=== PATIENT | male | born 1975 | race Caucasian/White ===

== ENCOUNTER 2022-06-18 15:26 | Inpatient (IN) | payer BC, MEDICAID, SELFPAY ==
[2022-06-18 15:26] VITALS: BMI 26.4
[2022-06-18 15:28] VITALS: BP 132/78; PULSE 78; RESP 18; TEMP 37.5; O2SAT 98
[2022-06-18] MEDS: ibuprofen 800 mg tablet PO (16:28)
[2022-06-18] MEDS: calcium carbonate 500 mg Chew Tablet 1000 MG PO ×2 (16:28→20:24)
[2022-06-18 19:35] VITALS: BP 123/77; PULSE 84; RESP 16; TEMP 36.7; O2SAT 98
--- NOTE | 2022-06-18 20:25 | PC.NURSE ---
PRN tums were given as ordered per pt request of complaint of heartburn.
[2022-06-18] MEDS: hyDROXYzine 25 mg Capsule 50 MG PO (21:20)
--- NOTE | 2022-06-18 21:25 | PC.NURSE ---
PRN vistaril for anxiety given as ordered per pt request.
[2022-06-18] MEDS: ondansetron 4 MG Tablet PO (22:28)
--- NOTE | 2022-06-18 22:35 | PC.NURSE ---
PRN zofran given as ordered for pt complaint of upset stomach and heartburn.
[2022-06-18] MEDS: alum-mag-hydroxide-sime 30 mL UDC PO (23:07)
--- NOTE | 2022-06-18 23:15 | PC.NURSE ---
PRN Maalox given as ordered for pt complaint of continuing heartburn.
[2022-06-19] MEDS: calcium carbonate 500 mg Chew Tablet 1000 MG PO ×3 (01:22→21:52)
--- NOTE | 2022-06-19 01:25 | PC.NURSE ---
PRN tums given as ordered for continuing heartburn per pt request.
[2022-06-19] MEDS: magnesium hydroxide 30 mL UDC PO (01:55)
--- NOTE | 2022-06-19 01:57 | PC.NURSE ---
PRN milk of mag was given as ordered per pt complaint of constipation.
[2022-06-19 06:00] VITALS: RESP 16
[2022-06-19] MEDS: quetiapine 100 mg Tablet PO (09:15)
[2022-06-19] MEDS: sertraline 50 mg Tablet PO (09:15)
[2022-06-19] MEDS: ibuprofen 800 mg tablet PO ×2 (09:15→21:52)
[2022-06-19] MEDS: ALPRAZolam 0.5 mg Tablet 1 MG PO (09:19)
--- NOTE | 2022-06-19 11:30 | W.PM.NPUH&PS ---
Providers/Chief Complaint Admitting Physician: Francisco Travis MD Chief Complaint: SI HPI NPU History of Present Illness Manuel Porter is a 47 year old male who presented to the outside hospital via police with reports of an overdose that they report as a suicidal gesture but he reports as a bizarre response to taking Ambien at the wrong time. He was taken to the outside hospital and affidavits were written and he was transferred to [facility] and admitted to the neuropsychiatric unit for definitive treatment of those issues. He presents today reporting that he is on Seroquel and Zoloft. He also is noted for having Ambien and Xanax. He told some convoluted story about falling playing basketball somehow leading to this event which was really unclear. He reports that he has been in a psychiatric hospital in the past. He reports this was may be a couple months ago because he had gone to have [facility] as a treatment and he was also on Effexor and he had some kind of elevated blood pressure difficulty which led to an inpatient hospitalization his Effexor being discontinued which was something he is taken for a long period of time and being switched over to Zoloft and Seroquel. He reports that he has no issues with smoking, alcohol or marijuana or any other drugs. He reports he is never been to rehab never had a DUI or any other drug related charges. He reports that he had difficulties with depression starting in his 20s and that he has been on Effexor XR much of his life. He reports that he went off of it over a month ago during this episode and the [facility] clinic that led to his only inpatient hospitalization. He reports he does have some anxiety that is occasionally challenging but not usually. He denies any other symptoms related to psychosis, OCD, PTSD, bipolar disorder any other significant condition. We discussed the risk benefits and alternatives of making some changes to his medications and he understood but was resistant reporting that he is currently doing fine on the medication. According to him he takes Ambien every night but he takes it right when he is hitting his pillow and that yesterday he took it before he laid down and that he has a history of odd reactions when he takes it other than when his head hits the pillow. We discussed that reporting uncontrolled behaviors when taking a medication he uses regularly is problematic and concerning for his safety.. Psychiatric history: As above. Substance abuse history: As above. Family history: He endorses mental health issues on father side but none on mother's side and no addiction issues or suicide attempts or completions on either side of the family. Developmental history: He denies any issues at and reports he learned to walk and talk and met his developmental milestones on time. When he went off to school there was no need for speech therapy, learning support, emotional support or special education classes. Psychosocial history: His parents were together when he was born and remained together. He has a younger sister who is a product of that same union and neither of his parents have any other children. He reports that his childhood was good and he denies any emotional physical or sexual abuse. He graduated from high school and reports that he has had no real additional training specifically. He endorses being a heterosexual and his longest relationship was about 4 years. He has never been , has never had children, he has never been in the , and reports being Adventist. He reports his longest job was 15 years at [employer]. And he is currently self-employed. 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 Legal history: Denied. Medical history: He denies any significant medical issues other than this recent pain syndrome that supposedly had some connection to him going to the hospital. Meds NPU Home Medications Medication Instructions Recorded Confirmed Last Taken Type alprazolam 1 mg tablet 1 mg PO BID PRN Anxiety 06/18/22 06/18/22 Unknown History quetiapine 100 mg tablet 100 mg PO DAILY 06/18/22 06/18/22 Unknown History sertraline 50 mg tablet 50 mg PO DAILY 06/18/22 06/18/22 Unknown History zolpidem 10 mg tablet 10 mg PO BEDTIME 06/18/22 06/18/22 Unknown History Allergies Allergy/AdvReac Type Severity Reaction Status Date / Time venlafaxine [From Effexor] AdvReac ADR-Hyperte Verified 06/18/22 15:52 nsion Mental Status Exam MSE Comments: This is a tall slender white male in hospital scrubs with adequate grooming and eye contact. No abnormal movements. Cooperative with exam in mild distress. Speech was slightly decreased rate and volume. Mood described as all right, affect slightly subdued. Thought process organized. Thought content: Patient denied suicidal or homicidal ideation, there were no delusions reported or noted, he denied any auditory or visual hallucinations. Attention and concentration were intact and memory appeared somewhat unreliable but none were formally tested. He is alert and oriented x3. Insight and judgment limited impulse control limited. Vitals/I&O/Wt Last Vital Signs Temp 98.1 F 06/18/22 19:35 Pulse 84 06/18/22 19:35 Resp 16 06/19/22 06:00 BP 123/77 06/18/22 19:35 Pulse Ox 98 06/18/22 19:35 O2 Del Method 06/18/22 19:35 Weight last 48 hrs Weight 88.451 kg Weight 88.451 kg A&P Assessment and plan (1) Major depressive disorder, recurrent: (2) Anxiety disorder: (3) Overdose by ingestion: Plan This is a 47-year-old white male with a reported history of depression and anxiety who presented reporting an intentional overdose that was out of his control reporting it was a purposeless response to taking his Ambien at the wrong time the previous night wanting to remain on the same medications and be discharged home. 1.?Continue current medication. 2.?Encourage individual, group and milieu therapy 3.?Continue q-15 minute check for safety 4.?Recommend sober living treatment at the highest level of care to which the patient is willing to commit. 5. Evaluate for safety for discharge given the 96-hour hold. Involuntary Hold Information 96 Hour Hold: 96 Hour Involuntary Admission: No Attestations NPU Medical Necessity Statement*: Inpatient hospitalization is medically necessary and the clinically appropriate decision at this time.? We will monitor medications and make changes as indicated.? He will be in the hospital for over 2 midnights.? Likely length of stay of 2-4 days. Coding Level of Care Code Acute Code for [facility] Fwd Diagnoses Major depressive disorder, recurrent F33.9 Anxiety disorder F41.9 Overdose by ingestion T50.901A
[2022-06-19 14:00] VITALS: BP 122/86; PULSE 101; RESP 18; TEMP 36.7; O2SAT 93
[2022-06-19] MEDS: zolpidem 5 mg Tablet 10 MG PO (20:00)
[2022-06-19 21:09] VITALS: BP 106/71; PULSE 117; RESP 18; TEMP 37; O2SAT 92
--- NOTE | 2022-06-19 21:55 | PC.NURSE ---
PRN tums and ibuprofen given as ordered per pt request.
[2022-06-20] MEDS: ALPRAZolam 0.5 mg Tablet 1 MG PO ×2 (01:10→11:21)
--- NOTE | 2022-06-20 01:11 | PC.NURSE ---
PRN xanax given as ordered per pt request.
[2022-06-20 06:00] VITALS: RESP 18
[2022-06-20] MEDS: sertraline 50 mg Tablet PO (08:51)
[2022-06-20] MEDS: quetiapine 100 mg Tablet PO (08:51)
[2022-06-20] MEDS: ibuprofen 800 mg tablet PO ×2 (08:53→21:10)
[2022-06-20] MEDS: calcium carbonate 500 mg Chew Tablet 1000 MG PO (10:06)
--- NOTE | 2022-06-20 13:15 | P.NPUPN_ITS ---
Subjective NPU Subjective: Patient presented today reporting that he is feeling better. He was able to be more forthcoming about his behaviors. Being more honest about some recollection about the event including writing the note that his father found. He discussed feeling he does need to connect and do treatment. We discussed working with the treatment team about possible discharge planning. Mental Status Exam MSE Comments: This is a tall slender white male in hospital scrubs with adequate grooming and eye contact. No abnormal movements. Cooperative with exam in mild distress. Speech was slightly decreased rate and volume. Mood described as getting better, affect slightly subdued. Thought process organized. Thought content: Patient denied suicidal or homicidal ideation, there were no delusions reported or noted, he denied any auditory or visual hallucinations. Attention and concentration were intact and memory appeared somewhat unreliable but none were formally tested. He is alert and oriented x3. Insight and judgment limited impulse control limited. Vitals/I&O/Wt Last Vital Signs Temp 98.6 F 06/19/22 21:09 Pulse 117 H 06/19/22 21:09 Resp 18 06/20/22 06:00 BP 106/71 06/19/22 21:09 Pulse Ox 92 06/19/22 21:09 O2 Del Method 06/19/22 21:09 Weight last 48 hrs Weight 88.451 kg Weight 88.451 kg A&P Assessment and plan (1) Major depressive disorder, recurrent: (2) Anxiety disorder: (3) Overdose by ingestion: Plan This is a 47-year-old white male with a reported history of depression and anxiety who presented reporting an intentional overdose that was out of his control reporting it was a purposeless response to taking his Ambien at the wrong time the previous night wanting to remain on the same medications and be discharged home. 1.?Continue current medication. Increase Zoloft to 100 mg p.o. every morning 2.?Encourage individual, group and milieu therapy 3.?Continue q-15 minute check for safety 4.?Recommend sober living treatment at the highest level of care to which the patient is willing to commit. 5. Evaluate for safety for discharge given the 96-hour hold. Involuntary Hold Information 96 Hour Hold: 96 Hour Involuntary Admission: No Attestations NPU Medical Necessity Statement*: Inpatient hospitalization is medically necessary and the clinically appropriate decision at this time.? We will monitor medi cations and make changes as indicated.? Likely length of stay of 2-4 days. Coding Level of Care Code Acute Code for [facility] Fwd Diagnoses Major depressive disorder, recurrent F33.9 Anxiety disorder F41.9 Overdose by ingestion T50.901A
[2022-06-20 14:00] VITALS: BP 111/75; PULSE 98; RESP 20; TEMP 37; O2SAT 91
[2022-06-20] MEDS: bismuth subsalicylate 240 mL Btl 15 ML PO ×2 (14:46→21:11)
[2022-06-20] MEDS: magnesium hydroxide 30 mL UDC PO (16:03)
[2022-06-20] MEDS: acetaminophen 325 mg Tablet 650 MG PO (17:14)
[2022-06-20] MEDS: zolpidem 5 mg Tablet 10 MG PO (21:09)
[2022-06-20 22:00] VITALS: BP 117/79; PULSE 102; RESP 16; TEMP 36.6; O2SAT 91
[2022-06-21] MEDS: alum-mag-hydroxide-sime 30 mL UDC PO ×2 (00:40→14:16)
[2022-06-21 06:00] VITALS: RESP 17
[2022-06-21] MEDS: sertraline 100 mg Tablet PO (08:40)
[2022-06-21] MEDS: quetiapine 100 mg Tablet PO (08:40)
[2022-06-21] MEDS: ibuprofen 800 mg tablet PO (11:13)
--- NOTE | 2022-06-21 13:14 | W.PM.NPUDCS ---
Diagnoses at Discharge Discharge Diagnosis (1) Major depressive disorder, recurrent: Status: Acute (2) Anxiety disorder: Status: Acute (3) Overdose by ingestion: Status: Acute Reason for Visit Reason for Visit: SI Brief History: History of Present Illness Manuel Porter is a 47 year old male who presented to the outside hospital via police with reports of an overdose that they report as a suicidal gesture but he reports as a bizarre response to taking Ambien at the wrong time.? He was taken to the outside hospital and affidavits were written and he was transferred to [facility] and admitted to the neuropsychiatric unit for definitive treatment of those issues.? He presents today reporting that he is on Seroquel and Zoloft.? He also is noted for having Ambien and Xanax.? He told some convoluted story about falling playing basketball somehow leading to this event which was really unclear.? He reports that he has been in a psychiatric hospital in the past.? He reports this was may be a couple months ago because he had gone to have [facility] as a treatment and he was also on Effexor and he had some kind of elevated blood pressure difficulty which led to an inpatient hospitalization his Effexor being discontinued which was something he is taken for a long period of time and being switched over to Zoloft and Seroquel.? He reports that he has no issues with smoking, alcohol or marijuana or any other drugs.? He reports he is never been to rehab never had a DUI or any other drug related charges.? He reports that he had difficulties with depression starting in his 20s and that he has been on Effexor XR much of his life.? He reports that he went off of it over a month ago during this episode and the [facility] clinic that led to his only inpatient hospitalization.? He reports he does have some anxiety that is occasionally challenging but not usually.? He denies any other symptoms related to psychosis, OCD, PTSD, bipolar disorder any other significant condition.? We discussed the risk benefits and alternatives of making some changes to his medications and he understood but was resistant reporting that he is currently doing fine on the medication.? According to him he takes Ambien every night but he takes it right when he is hitting his pillow and that yesterday he took it before he laid down and that he has a history of odd reactions when he takes it other than when his head hits the pillow.? We discussed that reporting uncontrolled behaviors when taking a medication he uses regularly is problematic and concerning for his safety.. Psychiatric history: As above. Substance abuse history: As above. Family history: He endorses mental health issues on father side but none on mother's side and no addiction issues or suicide attempts or completions on either side of the family. Developmental history: He denies any issues at and reports he learned to walk and talk and met his developmental milestones on time.? When he went off to school there was no need for speech therapy, learning support, emotional support or special education classes. Psychosocial history: His parents were together when he was born and remained together.? He has a younger sister who is a product of that same union and neither of his parents have any other children.? He reports that his childhood was good and he denies any emotional physical or sexual abuse.? He graduated from high school and reports that he has had no real additional training specifically.? He endorses being a heterosexual and his longest relationship was about 4 years.? He has never been , has never had children, he has never been in the , and reports being Oriental Orthodox.? He reports his longest job was 15 years at [employer].? And he is currently self-employed.? 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 Legal history: Denied. Medical history: He denies any significant medical issues other than this recent pain syndrome that supposedly had some connection to him going to the hospital. Hospital Course Hospital Course He slowly acclimated to the individual, group and milieu therapy provided. He initially was trying to ignore the reality of his behaviors which were that he made a suicide attempt leading a note. Eventually as we gain report he was able to begin to talk about his choices and feeling an adequate based on where he is right now discontinued dependence on his family. We discussed at length the changes he needed to make to be more comfortable with his current circumstances. We increased his Zoloft to 100 mg during the stay and he had significant improvement. he was able to contract for safety outside of the hospital prior to discharge. At the outside hospital, patient had routine laboratory studies which were within normal limits except for few outliers. Additionally there was a general medical evaluation which was also within normal limits and revealed no new acute processes. Discharge Summary: At the time of discharge, he denied psychosis or lethality. Mood and anxiety were well managed. Patient endorsed a plan to avoid all drugs of abuse and follow-up with the aftercare recommendations of the treatment team. Patient was evaluated and deemed to be absent credible lethality, and had achieved the maximum benefit from an inpatient hospitalization, so was discharged. Involuntary Hold Information 96 Hour Hold: 96 Hour Involuntary Admission: No Mental Status Exam MSE Comments: This is a tall slender white male in hospital scrubs with adequate grooming and eye contact. No abnormal movements. Cooperative with exam in no acute distress. Speech was more normal rate and volume. Mood described as getting better, affect congruent. Thought process organized. Thought content: Patient denied suicidal or homicidal ideation, there were no delusions reported or noted, he denied any auditory or visual hallucinations. Attention and concentration were intact and memory appeared more reliable but none were formally tested. He is alert and oriented x3. Insight and judgment limited, but improving, impulse control limited. Discharge Data Vitals: Last Vital Signs Temp 98 F 06/20/22 22:00 Pulse 102 H 06/20/22 22:00 Resp 17 06/21/22 06:00 BP 117/79 06/20/22 22:00 Pulse Ox 91 06/20/22 22:00 O2 Del Method 06/20/22 22:00 Discharge Plan Discharge Patient Disposition: Home Condition: Stable Prescriptions: New sertraline 100 mg Tablet 100 mg PO DAILY 30 Days Qty: 30 1RF Continued alprazolam 1 mg tablet 1 mg PO BID PRN (Reason: Anxiety) quetiapine 100 mg tablet 100 mg PO DAILY zolpidem 10 mg tablet 10 mg PO BEDTIME Discontinued sertraline 50 mg tablet 50 mg PO DAILY Discharge Orders: Discharge Order (Routine); Ordered 06/21/22 Ordered By: Francisco Travis Referrals: Kay Weaver [Other] - 07/01/22 8:00 am (Intake with Meghan Woody) Karen Kruger [Other] - 06/25/22 1:45 pm (Appointment will be with Isabelle Ambrose NP. ) Dr Garzon [Other] - 08/01/22 12:40 pm Discharge Diet: Regular Discharge Activity: Resume usual activity Patient Instructions: Sertraline (By mouth), Anxiety (DC), Suicide Prevention (DC), Opioid Safety Discharge Attestations NPU Time Spent in Discharge Care*: less than 30 min Specific Discharge Activities: Specific discharge activities: educating patient, discussing with caser in/social workers/dc planners, documenting/other paperwork and evaluating patient/reviewing data Coding Level of Care Code Acute Chg FW DC note Diagnoses Major depressive disorder, recurrent F33.9 Anxiety disorder F41.9 Overdose by ingestion T50.903T
[2022-06-21 13:20] VITALS: BP 112/71; PULSE 93; RESP 16; TEMP 36.8; O2SAT 92
[2022-06-21 13:22] VITALS: BP 112/71; PULSE 93; RESP 16; TEMP 36.8; O2SAT 92
== END 2022-06-21 16:25 | disposition home or self-care (01) | DRG 918 ==
PROVIDERS: Admitting Provider Psychiatry & Neurology Psychiatry; Visit Provider Psychiatry & Neurology Psychiatry
DX: T42.6X1A Poisoning by other antiepileptic and sedative-hypnotic drugs, accidental (unintentional), initial encounter (principal); F33.9 Major depressive disorder, recurrent, unspecified; F41.9 Anxiety disorder, unspecified
CPT/HCPCS: 97165; Q0162